=== PATIENT | female | born 1990 | race Caucasian/White ===

== ENCOUNTER → 2018-11-28 17:04 | Outpatient (CLI) | payer SELFPAY | PROVIDERS: Visit Provider Nurse Practitioner Obstetrics & Gynecology | DX: Z34.90 Encounter for supervision of normal pregnancy, unspecified, unspecified trimester (principal) | CPT/HCPCS: 36415; 84702 ==

== ENCOUNTER → 2018-12-26 13:56 | Outpatient (CLI) | payer MEDICAID, SELFPAY ==
--- NOTE | 2018-12-26 13:59 | US_ITS ---
US OB transvaginal HISTORY: Early OB ultrasound ITS.REASON: US OB Dates ORDERING PHYSICIAN: Thee Olivas MD PATIENT AGE: 28 years COMPARISON: None FINDINGS: An intrauterine gestational sac is present with a pole with a crown-rump length of 6.02cm correlating to gestational age of 14w0d. heart tones are present with an FHR of 174 bpm's. The placenta is noted anteriorly Adnexa: 2 cm left corpus luteum cyst. IMPRESSION: Live intrauterine gestation at 14 weeks 0 days as described above. Estimated due date by Ultrasound is 07/03/2019
== END ==
PROVIDERS: PCP Pediatrics; Visit Provider Nurse Practitioner Obstetrics & Gynecology
DX: O26.841 Uterine size-date discrepancy, first trimester (principal)
CPT/HCPCS: 76817

== ENCOUNTER → 2018-12-27 17:54 | Outpatient (CLI) | payer MEDICAID, SELFPAY ==
[2018-12-27 18:30] LABS: Basophils % 0.3 % (0.1-2.0); Eosinophils # 0.1 K/mm3 (0.0-0.4); Eosinophils % 0.6 % (0.1-12.0); Hematocrit 38.8 % (37.0-47.0); Hemoglobin 13.1 g/dL (12.2-16.2); Lymphocytes # 2.1 K/mm3 (0.7-4.5); Lymphocytes % 16.4 % (10-50); Mean Corpuscular HGB Conc 33.9 g/dL (31.8-35.4); Mean Corpuscular Hemoglobin 28.5 pg (27.0-31.2); Mean Corpuscular Volume 84.3 fl (81-99); Mean Platelet Volume 6.9 fl (7.4-10.4); Monocytes # 0.6 K/mm3 (0.1-1.0); Monocytes % 4.4 % (1.7-9.3); Neutrophils # 9.9 K/mm3 (1.8-7.8); Neutrophils % 78.4 % (37.0-80.0); Platelet Count 327 K/mm3 (142-424); Red Blood Count 4.61 M/mm3 (4.20-5.40); Red Cell Distribution Width 13.5 % (11.5-17.5); White Blood Count 12.6 K/mm3 (4.8-10.8)
[2018-12-29 08:19] LABS: Rapid Plasma Reagin Ab Titer Non Reactive (NonRea<1:1)
[2018-12-30 06:21] LABS: HIV Screen 4th Generation wRfx Non Reactive (Non Reactive); Hepatitis B Surface Antigen Negative (Negative); Hepatitis C Antibody <0.1 s/co ratio (0.0-0.9); Rubella Antibodies, IgG 2.26 index (Immune >0.99)
== END ==
PROVIDERS: Visit Provider Nurse Practitioner Obstetrics & Gynecology
DX: Z34.90 Encounter for supervision of normal pregnancy, unspecified, unspecified trimester (principal)
CPT/HCPCS: 36415; 85025; 86592; 86703; 86762; 86850; 87340; 87380; G0432

== ENCOUNTER → 2019-02-06 13:22 | Outpatient (CLI) | payer MEDICAID, SELFPAY ==
--- NOTE | 2019-02-06 13:28 | US_ITS ---
US OB /maternal detail: INDICATION: ITS.REASON: US OB Complete ORDERING PHYSICIAN: Thee Olivas MD PATIENT AGE: 28 years TECHNIQUE: ultrasound transabdominal scanning. COMPARISON: No previous relevant studies. FINDINGS: Single viable intrauterine gestation. Breech position. Placenta: Anterior placenta grade 1. There is average amount fluid. The cervix appears satisfactory. Closed and measuring 4 cm in length. Complete survey performed and was unremarkable on the submitted images as in PACS. No discrete anomalies identified on survey imaging by technologist. Active fetus. Three-vessel cord with satisfactory umbilical cord insertion. 4- chamber heart noted. Survey of brain & ventricles unremarkable. Face and neck survey unremarkable. Diaphragm and chest views unremarkable. Abdomen: Both kidneys noted and unremarkable. Stomach noted and satisfactory. Spine: Survey of the spine satisfactory with no anomalies identified nor imaged. Both arms and legs noted. Amniotic Fluid: Adequate. Maternal adnexa: No significant findings. Measurements: Average ultrasound age 19w0d. Gestational Age 20w0d. Estimated due date by ultrasound age 1107/03/2019. Estimated weight 271 grams. BPD = 19w0d OFD = 19w2d HC = 18w3d AC = 19w3d FL = 19w0d Growth Percentile= 8 percent Heart Rate = 160 Cerebellum = 20w3d Humerus = 18w6d HC/AC is 1.11 (1.09-1.26). CI is 78% (70-86%). FL/BPD is 68%. FL/AC is 21%. IMPRESSION: There is a single live fetus impression presentation. Average ultrasound age is 19 weeks and 0 days. All parameters correlate. No obvious anomalies. Please see above for detailed description
== END ==
PROVIDERS: PCP Family Medicine; Visit Provider Nurse Practitioner Obstetrics & Gynecology
DX: Z36.0 Encounter for antenatal screening for chromosomal anomalies (principal)
CPT/HCPCS: 76811

== ENCOUNTER → 2019-03-30 07:54 | Outpatient (CLI) | payer MEDICAID, SELFPAY ==
[2019-03-30 08:14] LABS: Glucose,Fasting 81 mg/dL (60-105)
[2019-03-30 09:57] LABS: Glucose 1 Hour 148 mg/dL (74-106)
== END ==
PROVIDERS: Visit Provider Nurse Practitioner Obstetrics & Gynecology
DX: Z34.90 Encounter for supervision of normal pregnancy, unspecified, unspecified trimester (principal)
CPT/HCPCS: 36415; 82951

== ENCOUNTER → 2019-04-10 07:41 | Outpatient (CLI) | payer MEDICAID, SELFPAY ==
[2019-04-10 08:01] LABS: Glucose,Fasting 86 mg/dL (60-105)
[2019-04-10 13:29] LABS: Glucose 1 Hour 74 mg/dL (74-106); Glucose 2 Hour 73 mg/dL (74-106); Glucose 3 Hour 70 mg/dL (74-106)
== END ==
PROVIDERS: Visit Provider Nurse Practitioner Obstetrics & Gynecology
DX: Z34.90 Encounter for supervision of normal pregnancy, unspecified, unspecified trimester (principal)
CPT/HCPCS: 36415; 82951

== ENCOUNTER → 2019-05-22 17:05 | Outpatient (CLI) | payer MEDICAID, SELFPAY | PROVIDERS: Visit Provider Nurse Practitioner Obstetrics & Gynecology | DX: Z34.90 Encounter for supervision of normal pregnancy, unspecified, unspecified trimester (principal) | CPT/HCPCS: 86403 ==

== ENCOUNTER 2019-06-27 05:34 | Inpatient (IN) ==
[2019-06-27 06:17] LABS: Basophils % 0.2 % (0.1-2.0); Eosinophils # 0.1 K/mm3 (0.0-0.4); Eosinophils % 1.3 % (0.1-12.0); Hemoglobin 12.1 g/dL (12.2-16.2); Lymphocytes # 1.7 K/mm3 (0.7-4.5); Lymphocytes % 17.2 % (10-50); Mean Corpuscular HGB Conc 31.9 g/dL (31.8-35.4); Mean Corpuscular Volume 84.2 fl (81-99); Mean Platelet Volume 8.2 fl (7.4-10.4); Monocytes # 0.5 K/mm3 (0.1-1.0); Monocytes % 4.8 % (1.7-9.3); Neutrophils # 7.7 K/mm3 (1.8-7.8); Neutrophils % 76.5 % (37.0-80.0); Platelet Count 308 K/mm3 (142-424); Red Blood Count 4.52 M/mm3 (4.20-5.40); Red Cell Distribution Width 14.5 % (11.5-17.5); White Blood Count 10.1 K/mm3 (4.8-10.8)
[2019-06-27 06:28] LABS: Microscopic, Urine URINE MICROSCOPIC (MICROSCOPIC)
[2019-06-27 06:31] LABS: Appearance,Urine SL CLOUDY (Clear); Bilirubin,Urine Negative (Negative); Blood, Urine Negative (Negative); Color,Urine YELLOW (Yellow); Glucose,Urine (UA) Negative (Negative); Ketones,Urine Negative (Negative); Leukocyte Esterase,Urine 1+ (Negative); PH,Urine 6.5 (5.0-8.5); Protein,Urine Negative (Negative); Specific Gravity, Urine 1.025 (1.005-1.030); Urobilinogen,Urine 0.2 EU/dl (0.2)
[2019-06-27 06:40] LABS: Amphetamine/Metha Screen,Urine Negative ng/mL (<1000); Barbiturates Screen,Urine Negative ng/mL (<200); Benzodiazepines Screen,Urine Negative ng/mL (<200); Cannabinoid Screen,Urine Negative ng/mL (<50); Cocaine Screen,Urine Negative ng/mL (<300); Methadone Screen,Urine Negative ng/mL (<300); Opiate Screen,Urine Negative ng/mL (<300); Phencyclidine Screen,Urine Negative ng/mL (<25)
[2019-06-27 06:44] LABS: Bacteria,Urine 1+ /lpf; Mucus,Urine 1+ /lpf; RBC,Urine Occasional #/hpf (0-3)
--- NOTE | 2019-06-27 08:21 | History & Physical Report ---
OB - H&P: HPI Antepartum - History of Present Illness Chief complaint: Postterm History of present illness: She is a 28 year-old 5 para 4 who is 40 weeks and a day. She has had 4 previous vaginal deliveries. [place] away. As result of that we elected to induce her labor at term. - History of Present Criteria for establishing EDC:: LMP confirmed by 1st trimester US care: good care Ultrasounds: normal 1st trimester US, normal mid trimester US Obstetrical complications: none [facility] History I have reviewed the patient's past medical history: Yes *Have you ever received a pneumonia vaccine?: No *Have you received a flu vaccine this season?: No Laterality Cases: Other Surgeries: Yes: No Previous Surgery. No: Amputation: No Fractures: No - *Social History Smoking Status: Never smoker Alcohol Intake: never Substance Use Type: denies use *Occupational Status:: employed Housing: other *Travel in the last 8 weeks: None Family Hx:: No significant family history Para: 4 Review of Systems - Review of Systems Review of systems:: pertinent systems reviewed and negative unless documented below Meds Home Medications Medication Instructions Recorded Confirmed Type 1 tab PO DAILY 11/30/18 06/27/19 History vitamin,calcium,tbgrhstk-ceav-vqina acid tablet Ferrous Sulfate 325 mg PO DAILY 06/27/19 06/27/19 History Allergies Allergy/AdvReac Type Severity Reaction Status Date / Time No Known Allergies Allergy Verified 06/23/19 09:21 OB - H&P: Exam - Physical Exam Vital signs: Temp Pulse Resp BP Pulse Ox 98.6 F 82 17 135/89 99 06/27/19 05:44 06/27/19 05:44 06/27/19 05:44 06/27/19 05:44 06/27/19 05:44 - Constitutional no acute distress - Routine HEENT Exam Head: Present: normocephalic Eye: Present: EOMI, PERRL ENT: Present: mucous membranes moist - Routine Neck Exam Present: supple, full ROM - Routine Respiratory Exam Absent: accessory muscle use (good air entry bilaterally), respiratory distress, wheezes, crackles - Routine Cardiovascular Exam Present: RRR. Absent: murmur - Routine Abdominal Exam Present: soft, normoactive bowel sounds. Absent: tenderness, distended, guarding - Routine Rectal Exam Patient deferred: visual exam, digital exam - Routine Exam Patient deferred: external exam, groin exam, perineal exam - Routine Extremities Exam Present: full ROM. Absent: cyanosis, edema - Routine Skin Exam Present: intact. Absent: cyanosis - Routine Neurological Exam Present: alert, oriented X3 - Routine Psychiatric Exam Present: normal affect OB - Results - Labs Labs: Short CBC 06/27/19 Range/Units 06:07 WBC 10.1 (4.8-10.8) K/mm3 Hgb 12.1 L (12.2-16.2) g/dL Hct 38.0 (37.0-47.0) % Plt Count 308 (142-424) K/mm3 Urine 06/27/19 Range/Units 06:18 Urine Color Yellow (Yellow) Urine Appearance Sl cloudy (Clear) Urine pH 6.5 (5.0-8.5) Ur Specific Allen 1.025 (1.005-1.030) Urine Protein Negative (Negative) Urine Glucose (UA) Negative (Negative) OB - A/P Antepartum (1) Normal delivery at term Current visit: Yes Status: Acute - Additional Plan Planning to breastfeed?: Yes Plan: induction Additional Information:: She is postdates and 5. She has had 4 previous vaginal deliveries. She lives at least 30 minutes away. As result of that we are electing to use her labor at term.
--- NOTE | 2019-06-27 08:22 | Progress Note ---
Labor Note - Subjective: Date: 06/27/19 Time: 08:21 regular contraction - Objective: NST:: Reactive Contractions:: every 2-3 minutes Cervical Dilation:: 4 Effacement:: 75% Station: -1 Membranes: artificially ruptured Comment:: Clear fluid - Fetus: Monitoring?: Yes monitoring type:: External - Assessment: Labor progressing?: Yes Cephalopelvic disproportion?: No Patient Problems: All Active Problems Uterine bleeding (Acute) Viable fetus in abdominal (Acute) Normal delivery at term (Acute) (Acute) - Plan: Anesthesia for epidural?: No Continue to labor down?: Yes Plan for ?: No Continue to monitor?: Yes Start pushing?: No Comment:: I have ruptured her membranes and there is clear fluid. She has progressed to 4 cm. We will plan a vaginal delivery.
--- NOTE | 2019-06-27 10:49 | Progress Note ---
Labor Note - Subjective: Date: 06/27/19 Time: 10:48 regular contraction - Objective: NST:: Reactive Contractions:: every 2-3 minutes Cervical Dilation:: 4 Effacement:: 75% Station: -1 Membranes: artificially ruptured - Fetus: Monitoring?: Yes monitoring type:: External - Assessment: Labor progressing?: Yes Cephalopelvic disproportion?: No Patient Problems: All Active Problems Uterine bleeding (Acute) Viable fetus in abdominal (Acute) Normal delivery at term (Acute) (Acute) - Plan: Anesthesia for epidural?: No Continue to labor down?: Yes Plan for ?: No Continue to monitor?: Yes Start pushing?: No
--- NOTE | 2019-06-27 13:40 | Progress Note ---
Labor Note - Subjective: Date: 06/27/19 Time: 13:39 regular contraction - Objective: NST:: Reactive Contractions:: every 2-3 minutes Cervical Dilation:: 5 Effacement:: 90% Station: 0 Membranes: artificially ruptured - Fetus: Monitoring?: Yes - Assessment: Labor progressing?: Yes Cephalopelvic disproportion?: No Patient Problems: All Active Problems Uterine bleeding (Acute) Viable fetus in abdominal (Acute) Normal delivery at term (Acute) (Acute) - Plan: Anesthesia for epidural?: No Continue to labor down?: Yes Plan for ?: No Continue to monitor?: Yes Start pushing?: No
--- NOTE | 2019-06-27 15:33 | Progress Note ---
Labor Note - Subjective: Date: 06/27/19 Time: 15:32 irregular contractions - Objective: NST:: Reactive Contractions:: every 2-3 minutes Cervical Dilation:: 8 Effacement:: 90% Station: 0 Membranes: artificially ruptured - Fetus: Monitoring?: Yes monitoring type:: Internal and External, External Comment:: clip applied - Assessment: Labor progressing?: Yes Cephalopelvic disproportion?: No Patient Problems: All Active Problems Uterine bleeding (Acute) Viable fetus in abdominal (Acute) Normal delivery at term (Acute) (Acute) - Plan: Anesthesia for epidural?: No Continue to labor down?: Yes Plan for ?: No Continue to monitor?: Yes Start pushing?: No
--- NOTE | 2019-06-27 17:14 | Procedure Note ---
- Delivery Note Delivery Date:: 06/27/19 Delivery Time:: 16:57 Anesthesia Type: None Was labor medically induced?: Yes Induction method: per pitocin protocol Gestational age (weeks): 40 Infant delivered prior to 39 weeks?: No Infant Gender: Male at 1 minute: 8 at 5 minutes: 9 Delivery Procedure:: She is a 28-year-old 5 5 para 4 at 40+1 weeks gestational age. She lives about 30 minutes away so we elected to induce her labor at term. She was started on IV oxytocin and had her membranes ruptured. She progressed to full dilation and delivered spontaneously a liveborn male child at 4:57 PM in the afternoon of June 27, 2019. On deliver the head there was a nuchal cord I delivered the rest of the infant's body atraumatically and then was able to easily reduce the cord. The oropharynx and nasopharynx were bulb suction. The baby cried spontaneously. We allowed the cord to continue to pulsate for approximately 1 minute. The cord was then doubly clamped and cut and the infant was placed on the mother's abdomen for further care. The nurses assigned Apgars of 8 at 1 minute and 9 at 5 minutes. She received IV oxytocin and using gentle traction on the cord and countertraction on the fundus I was able to easily deliver the placenta intact at 5:02 PM.. It had a normal three-vessel cord. There were no perineal or vaginal lacerations. She has O+ blood, she is rubella immune and was group B streptococcus negative. She plans to breast-feed. Her yard jockey is Dr. Chen. Estimated blood loss was approximately 500 cc. Placental Delivery Description: Spontaneous
[2019-06-28 05:40] LABS: Hematocrit 27.9 % (37.0-47.0)
[2019-06-28 05:42] LABS: Hemoglobin 8.9 g/dL (12.2-16.2)
--- NOTE | 2019-06-28 09:25 | Progress Note ---
Internal Medicine - PN: Subj *Date: 06/28/19 *Time: 09:23 Interval history: She had increased blood loss this morning and soaked through a floridalma. She then passed a couple of smaller clots. We have given her IV oxytocin as well as Hemabate. The bleeding seems to have settled. I examined her uterus and there were just a small amount of clot still up in the uterus. She is not actively bleeding anymore. The uterus is well contracted. Exam Vital signs and Labs for Last 24 Hours: Temp Pulse Resp BP Pulse Ox 98.6 F 82 17 135/89 99 06/27/19 05:44 06/27/19 05:44 06/27/19 05:44 06/27/19 05:44 06/27/19 05:44 Laboratory Results - last 24 hr 06/27/19 06:07: Crossmatch ([facility]) See Detail 06/27/19 06:18: Urine Opiates Screen Negative, Urine Methadone Screen Negative, Ur Barbituates Screen Negative, Ur Phencyclidine Scrn Negative, Ur Amphetamines Screen Negative, U Benzodiazepines Scrn Negative, Urine Cocaine Screen Negative, U Marijuana (THC) Screen Negative 06/27/19 17:21: Cord ABG pH 7.32 L 06/28/19 05:23: Hgb 8.9 L D, Hct 27.9 L I & O for Last 24 hours: Intake & Output 06/25/19 06/26/19 06/27/19 06/28/19 11:59 11:59 11:59 11:59 Weight 176 lb Microbiology Reports for the Last 24 Hours: Microbiology 06/27/19 06:18 Urine,Clean Catch Urine Culture - Preliminary NO GROWTH AFTER 24 HOURS - Constitutional no acute distress Assessment and Plan (1) Normal delivery at term Current visit: Yes Status: Acute Category: Medical Code(s): O80 - Encounter for full-term uncomplicated delivery (2) hemorrhage Current visit: Yes Status: Acute Category: Medical Code(s): O72.1 - Other immediate hemorrhage - Assessment and plan all Dx Assessment and Plan for all problems:: She had a significant amount of blood loss this morning. Her hemoglobin has dropped to 8.9 and I suspect it may even be lower than this. We will go ahead and give her 2 units of packed red blood cells. We will continue with IV oxytocin throughout the day at 40 cc/h. We will go ahead and give her misoprostol as well for the rest of the day.
[2019-06-28 16:16] LABS: Hematocrit 33.6 % (37.0-47.0)
[2019-06-28 17:22] LABS: Hemoglobin 10.7 g/dL (12.2-16.2)
[2019-06-29 04:10] VITALS: BP 127/78
[2019-06-29 08:23] LABS: Hematocrit 32.6 % (37.0-47.0); Hemoglobin 10.3 g/dL (12.2-16.2)
--- NOTE | 2019-06-29 10:33 | Discharge Summary ---
General - General Admission date:: 06/27/19 Discharge date: 06/29/19 HPI HPI: She is a 28-year-old 5 now para 5 who was 40+ weeks gestational age. She [place] out of town so we elected to bring her him and deliver her at 1 day post dates. Hospital Course Hospital Course: On June 27, 2019 she was started on IV oxytocin and had her membranes ruptured. She progressed to full dilation and delivered spontaneously a liveborn male child at 4:57 PM. The baby was a liveborn male child weighing 7 pounds 15 ounces and was 20-1/2 inches long. He had Apgars of 8 at 1 minute and 9 at 5 minutes. She has done well and has remained afebrile throughout her hospitalization. She did have a hemorrhage on the morning after her surgery and we elected to give her 2 units of blood. She had passed a number of clots and then soaked through completely and under pad. She received IV oxytocin as well as Hemabate and Cytotec. She subsequently has done well and has had no further episodes of bleeding. She has O+ blood, she is rubella immune and was group B streptococcus negative. She is bottlefeeding her utilization review coordinator Dr. Chen. She has been given the usual instructions with respect to limiting her activity, driving and sexual activity. She will continue with her vitamins and iron. Her condition on discharge is stable. Objective Vital signs: Temp Pulse Resp BP Pulse Ox 98.7 F 88 16 127/78 97 06/29/19 04:00 06/29/19 04:00 06/29/19 04:00 06/29/19 04:00 06/29/19 04:00 no acute distress Results Labs on day of discharge: Labs from last 24 hours 06/29/19 06/28/19 06/27/19 08:00 16:05 06:07 Hgb 10.3 L 10.7 L D Hct 32.6 L 33.6 L Blood Type O Positive Antibody Screen Negative Crossmatch ([facility]) See Detail DS: Diagnosis - Discharge Diagnosis (1) Normal delivery at term Status: Acute (2) hemorrhage Status: Acute Discharge Plan - Patient Discharge Instructions ACTIVITY: No heavy lifting DIET: continue same diet - Follow up Plan Disposition: Home, Self-Snf Medications: Home Medications Medication Instructions Recorded Confirmed Type 1 tab PO DAILY 11/30/18 06/27/19 History vitamin,calcium,liupkifx-yryk-jwpzk acid tablet Ferrous Sulfate 325 mg PO DAILY 06/27/19 06/27/19 History Prescriptions/Medication Reconciliation: Continued vitamin,calcium,rwgczegx-mbjh-evfzk acid tablet 1 tab PO DAILY Ferrous Sulfate 325 mg PO DAILY - Problem Reconciliation Problems Reviewed?: Yes
== END 2019-06-29 12:45 | disposition home or self-care (01) | DRG 806 ==
LOC: OB 05:34
PROVIDERS: ADMIT Nurse Practitioner Obstetrics & Gynecology; ATTEND Nurse Practitioner Obstetrics & Gynecology
CPT/HCPCS: 36415; 59025; 80305; 81001; 82800; 85014; 85018; 85025; 86850; 87086; J0595; J2405; P9016

== ENCOUNTER → 2020-04-30 14:55 | Outpatient (CLI) | payer OTHER, SELFPAY ==
--- NOTE | 2020-04-30 15:04 | US_ITS ---
PROCEDURE: US TRANSVAGINAL CLINICAL INDICATION: FAMILY HX OF OVARIAN CANCER COMPARISON: US OBTV US OB transvaginal from 12/26/2018 FINDINGS: UTERUS: 9cm x 5cmx 4cm with a combined endometrial thickness of 3.2mm LEFT OVARY: [id number] with a volume of 6.2ml. RIGHT OVARY: [id number] with a volume of 6.6ml. Artifact is present from an IUD which appears to be in satisfactory position. There are multiple bilateral ovarian follicles with no dominant cyst apparent. IMPRESSION: Multiple bilateral ovarian follicles with IUD in place. Otherwise negative pelvic ultrasound. No dominant mass evident Dictated by: Delfin Garcia MD 04/30/2020 16:15 Delfin Garcia MD in [place] 04/30/2020 16:15
== END ==
PROVIDERS: PCP Nurse Practitioner; Visit Provider Nurse Practitioner
DX: Z80.41 Family history of malignant neoplasm of ovary (principal)
CPT/HCPCS: 76830

== ENCOUNTER 2020-09-20 11:36 | Emergency (ER) | payer OTHER, SELFPAY ==
[2020-09-20 11:40] VITALS: BP 137/85; PULSE 71; RESP 21; TEMP 37.2; O2SAT 100; BMI 32.8
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
[2020-09-20 13:10] VITALS: BP 137/85; PULSE 71; RESP 21; TEMP 37.2; O2SAT 100
== END 2020-09-20 13:18 | disposition home or self-care (01) ==
PROVIDERS: Emergency Provider Nurse Practitioner Family; PCP Family Medicine
DX: M54.2 Cervicalgia (principal); M54.6 Pain in thoracic spine; V63.5XXA Driver of heavy transport vehicle injured in collision with car, pick-up truck or van in traffic accident, initial encounter; Y92.488 Other paved roadways as the place of occurrence of the external cause; Y99.0 Civilian activity done for income or pay
CPT/HCPCS: 72040; 72072; 72100; 99202; G0463

== ENCOUNTER 2021-07-28 02:58 | Emergency (ER) | payer SELFPAY ==
[2021-07-28] VITALS (13 sets, daily range): BP systolic 111–139; BP diastolic 62–85; PULSE 75–133; RESP 18–24; TEMP 36.8–37.5; O2SAT 94–98; BMI 31.6; BMI 32.6
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
--- NOTE | 2021-07-28 03:17 | XR_ITS ---
PROCEDURE INFORMATION: Exam: XR Chest Exam date and time: 07/28/2021 3:17 AM Age: 30 years old Clinical indication: Shortness of breath; Additional info: SOA TECHNIQUE: Imaging protocol: XR of the chest. Views: 2 views. COMPARISON: CR XR THORACIC SPINE 3V 09/20/2020 12:27 PM FINDINGS: Lungs: Unremarkable. No consolidation. Pleural spaces: Unremarkable. No pleural effusion. No pneumothorax. Heart/Mediastinum: Unremarkable. No cardiomegaly. Bones/joints: Unremarkable. IMPRESSION: No acute findings.
--- NOTE | 2021-07-28 03:17 | CT_ITS ---
PROCEDURE INFORMATION: Exam: CTA Chest With Contrast Exam date and time: 07/28/2021 3:17 AM Age: 30 years old Clinical indication: Shortness of breath; Additional info: SOA TECHNIQUE: Imaging protocol: Computed tomographic angiography of the chest with contrast. 3D rendering (Not supervised by radiologist): MIP and/or 3D reconstructed images were created by the technologist. Radiation optimization: All CT scans at this facility use at least one of these dose optimization techniques: automated exposure control; mA and/or kV adjustment per patient size (includes targeted exams where dose is matched to clinical indication); or iterative reconstruction. Contrast material: ISOVUE 370; Contrast volume: 70 ml; Contrast route: INTRAVENOUS (IV); COMPARISON: CR XR CHEST 2V 07/28/2021 3:38 AM FINDINGS: Pulmonary arteries: The pulmonary trunk, main, and branch pulmonary arteries contain no filling defects. Aorta: Unremarkable. No aortic aneurysm. No aortic dissection. Lungs: Unremarkable. No consolidation. No masses. Pleural spaces: Unremarkable. No pneumothorax. No pleural effusion. Heart: No cardiomegaly. No pericardial effusion. Heart RV/LV ratio: Within normal limits. Coronary arteries: There is no evidence of significant coronary artery calcifications. Mediastinal space: No evidence of mediastinal or hilar mass. Lymph nodes: Unremarkable. No enlarged lymph nodes. Bones/joints: Unremarkable. No acute fracture. Soft tissues: Unremarkable. IMPRESSION: 1. No evidence of main or branch pulmonary embolism. 2. No evidence of acute process within the chest.
[2021-07-28 03:24] LABS: Coronavirus 19, PCR Not Detected (NotDetected); Influenza A, PCR Not Detected (NotDetected); Influenza B, PCR Not Detected (NotDetected)
[2021-07-28 03:29] LABS: Basophils # 0.1 K/mm3 (0-0.2); Basophils % 0.5 % (0.1-2.0); Eosinophils # 0.1 K/mm3 (0.0-0.4); Eosinophils % 0.6 % (0.1-12.0); Hematocrit 45.1 % (37.0-47.0); Hemoglobin 15.3 g/dL (12.2-16.2); Lymphocytes # 2.2 K/mm3 (0.7-4.5); Lymphocytes % 9.7 % (10-50); Mean Corpuscular Hemoglobin 28.7 pg (27.0-31.2); Mean Corpuscular Volume 84.3 fl (81-99); Mean Platelet Volume 7.6 fl (7.4-10.4); Monocytes # 0.6 K/mm3 (0.1-1.0); Monocytes % 2.9 % (1.7-9.3); Neutrophils # 19.4 K/mm3 (1.8-7.8); Neutrophils % 86.4 % (37.0-80.0); Platelet Count 395 K/mm3 (142-424); Red Blood Count 5.35 M/mm3 (4.20-5.40); Red Cell Distribution Width 13.4 % (11.5-17.5)
[2021-07-28 03:31] LABS: Strep Scrn Group A (Rapid) Negative (Negative)
[2021-07-28 03:42] LABS: HCG Qualitative, Serum Negative (Negative)
[2021-07-28 03:43] LABS: White Blood Count 22.5 K/mm3 (4.8-10.8)
[2021-07-28 03:44] LABS: Alanine Aminotransferase 20 U/L (12-78); Albumin Level 4.5 g/dl (3.5-5.0); Alkaline Phosphatase 98 U/L (38-126); Anion Gap 11.3 mEq/L (5-15); Aspartate Amino Transferase 29 U/L (14-36); Bilirubin,Direct 0.2 mg/dl (0.0-0.4); Bilirubin,Indirect 0.5 mg/dL (0.0-0.9); Bilirubin,Total 0.7 mg/dl (0.2-1.3); Bilirubin,Unconjugated 0.5 mg/dL (0.0-1.1); Blood Urea Nitrogen 12 mg/dl (7-17); Calcium 9.6 mg/dl (8.4-10.2); Carbon Dioxide 26 mmol/L (22.0-30.0); Chloride 103 mmol/L (98-107); Creatinine Clearance Estimated 146 mL/min (50-200); Estimated Glomerular Filt Rate 98 ml/min (>60); GFR (African American) 119 ML/MIN (>60); Glucose 134 mg/dl (74-100); MANUAL DIFFERENTIAL MANUAL DIFFERENTIAL (MANUAL DIFF); Potassium 3.3 mmoL/L (3.5-5.1); Sodium 137 mmol/L (136-145); Total Protein,Serum 7.7 g/dl (6.3-8.2)
[2021-07-28 03:45] LABS: Lymphocytes % 6 % (10-50); Neutrophils % 79 % (42-76); Platelet Estimate Normal; RBC Morphology Normal; Rouleaux 1+; Total Cells Counted 100
[2021-07-28 03:49] LABS: C-Reactive Protein 4.7 mg/L (0-4)
[2021-07-28 03:57] LABS: Erythrocyte Sedimentation Rate 4 mm/hr (0-20)
[2021-07-28 03:58] LABS: Troponin I 0.02 ng/ml (0.00-0.034)
[2021-07-28 04:03] LABS: Procalcitonin 0.042 ng/mL (0.0-2.0)
[2021-07-28 04:13] LABS: Lactic Acid 1.7 mmol/L (0.7-2.1)
[2021-07-28 04:22] LABS: NT Pro Brain Natriuretic Pep. 20.7 pg/mL (0-125)
--- NOTE | 2021-07-28 04:55 | HMH.EDSOB ---
ED Disposition Clinical Impression: Pneumonitis Dyspnea Qualifiers: Dyspnea type: unspecified Qualified Code(s): R06.00 - Dyspnea, unspecified Disposition: Home, Self-Care Condition on Discharge: Good Instructions: DI for Shortness of Breath Additional Instructions: use meds and see pcp or ed if increased sx Prescriptions: Azithromycin [Zithromax 250mg tab] 250 mg PO DIRECTED #6 tab Transmission Status: Pending to [facility] Referrals: Елена Devries APRN [Primary Care Provider] - - Critical Care Critical Care Time: No Attestation: On 07/28/21, the high probability of a clinically significant, sudden or life threatening deterioration of the following system(s) required my full and direct attention, intervention and personal management. The time I documented below is in addition to time spent performing reported procedures but includes the following listed in this critical care notation. Medical Decision Making - Medical Records Medical records reviewed: Yes: I reviewed the patient's medical records. - Robin Inquiry Pt receiving controlled substance: No Vital Signs: 07/28/21 02:59 07/28/21 03:30 07/28/21 04:00 Temperature 98.3 F Temperature Source Oral Pulse Rate 126 H 114 H Pulse Rate [Left] 125 H Respiratory Rate 24 Blood Pressure 137/80 134/80 Blood Pressure [Right Arm] 139/85 Blood Pressure Mean [Right Arm] 103 02 Sat by Pulse Oximetry 95 95 98 Oxygen Delivery Method Room Air Room Air 07/28/21 04:20 07/28/21 04:21 07/28/21 04:30 Temperature Temperature Source Pulse Rate 120 H 117 H 133 H Pulse Rate [Left] Respiratory Rate Blood Pressure 124/77 Blood Pressure [Right Arm] Blood Pressure Mean [Right Arm] 02 Sat by Pulse Oximetry 94 L Oxygen Delivery Method 07/28/21 05:30 Temperature Temperature Source Pulse Rate 128 H Pulse Rate [Left] Respiratory Rate 20 Blood Pressure 114/62 Blood Pressure [Right Arm] Blood Pressure Mean [Right Arm] 02 Sat by Pulse Oximetry 94 L Oxygen Delivery Method Room Air - Lab Data Lab results reviewed: Yes: I reviewed the patient's lab results. Lab Results 07/28/21 03:06: Group A Strep Rapid Negative 07/28/21 03:06: SARS-CoV-2 (PCR) Not detected, Influenza A Untype (PCR) Not detected, Influenza Type B (PCR) Not detected 07/28/21 03:25: WBC 22.5 H*, RBC 5.35, Hgb 15.3, Hct 45.1, MCV 84.3, MCH 28.7, MCHC 34.0, RDW 13.4, Plt Count 395, MPV 7.6, Neut % (Auto) 86.4 H, Lymph % (Auto) 9.7 L, Barron % (Auto) 2.9, Eos % (Auto) 0.6, Baso % (Auto) 0.5, Neut # (Auto) 19.4 H, Lymph # (Auto) 2.2, Barron # (Auto) 0.6, Eos # (Auto) 0.1, Baso # (Auto) 0.1, Total Counted 100, Neutrophils % (Manual) 79 H, Band Neutrophils % 15.0 H, Lymphocytes % (Manual) 6 L, Platelet Estimate Normal, RBC Morphology Normal, Rouleaux 1+, ESR 4 07/28/21 03:25: Sodium 137, Potassium 3.3 L, Chloride 103, Carbon Dioxide 26, Anion Gap 11.3, BUN 12, Creatinine 0.70, Estimated Creat Clear 146, Estimated GFR 98, Est GFR ( Amer) 119, Glucose 134 H, Calcium 9.6, Total Bilirubin 0.7, Direct Bilirubin 0.2, Conjugated Bilirubin 0.0, Indirect Bilirubin 0.5, Unconjugated Bilirubin 0.5, AST 29, ALT 20, Alkaline Phosphatase 98, Troponin I 0.02, C-Reactive Protein 4.7 H, Total Protein 7.7, Albumin 4.5, Procalcitonin 0.042 07/28/21 03:25: Serum HCG, Qual Negative 07/28/21 03:25: NT-Pro-B Natriuret Pep 20.7 07/28/21 03:25: TSH 1.09, Thyroxine (T4) 7.9 07/28/21 03:25: Mycoplasma pneumon IgM Non-reactive 07/28/21 03:57: Lactate 1.7 07/28/21 06:30: Troponin I 0.02 Result diagrams: 07/28/21 03:25 07/28/21 03:25 Orders (Tests/Meds): ED MEDICATIONS Discontinued Medications Generic Name Dose Route Start Last Admin Trade Name Freq PRN Reason Stop Dose Admin Furosemide 40 mg 07/28/21 04:49 07/28/21 04:51 Furosemide 40mg/4ml Vial IV 07/28/21 04:50 40 mg ONCE ONE Administration Sodium Chloride 1,000 mls @ 999 mls/hr
[2021-07-28 05:40] LABS: T4 (Thyroxine) 7.9 ug/dl (5.53-11.0)
[2021-07-28 05:51] LABS: Mycoplasma Pneumo IGM (Rapid) Non-Reactive (Non-Reactiv)
[2021-07-28 05:54] LABS: Thyroid Stimulating Hormone 1.09 uIU/mL (0.465-4.68)
[2021-07-28 07:05] LABS: Troponin I 0.02 ng/ml (0.00-0.034)
--- NOTE | 2021-07-28 08:10 | PC.NURSE ---
Pt eating and drinking, tolerating well at this time.
[2021-07-28 09:55] LABS: Microscopic, Urine URINE MICROSCOPIC (MICROSCOPIC)
[2021-07-28 09:57] LABS: Appearance,Urine CLOUDY (Clear); Bilirubin,Urine Negative (Negative); Blood, Urine TRACE-I (Negative); Color,Urine YELLOW (Yellow); Glucose,Urine (UA) Negative (Negative); Ketones,Urine Negative (Negative); Leukocyte Esterase,Urine 3+ (Negative); Nitrate,Urine Negative (Negative); Protein,Urine Negative (Negative); Urobilinogen,Urine 0.2 EU/dl (0.2)
[2021-07-28 10:08] LABS: Bacteria,Urine 2+ /lpf; WBC,Urine 20-50 #/hpf (0-3)
== END 2021-07-28 09:46 | disposition home or self-care (01) ==
PROVIDERS: Emergency Provider Emergency Medicine; PCP Nurse Practitioner
DX: J18.9 Pneumonia, unspecified organism (principal)
CPT/HCPCS: 71046; 71275; 80048; 80076; 81001; 83605; 83880; 84145; 84436; 84443; 84484; 84703; 85007; 85025; 85651; 86140; 86738; 87040; 87086; 87430; 93005; 96365; 96367; 96375; 99284; C9803; J2405; Q9967; U0003; U0005

== ENCOUNTER → 2021-12-04 15:48 | Outpatient (CLI) | payer SELFPAY ==
[2021-12-04 16:53] LABS: Hemoglobin A1C 5.3 % (4.0-6.0)
[2021-12-04 17:42] LABS: Anion Gap 10.9 mEq/L (5-15); Blood Urea Nitrogen 11 mg/dl (7-17); Calcium 9.2 mg/dl (8.4-10.2); Carbon Dioxide 28 mmol/L (22.0-30.0); Chloride 105 mmol/L (98-107); Estimated Glomerular Filt Rate 98 ml/min (>60); GFR (African American) 118 ML/MIN (>60); Glucose 76 mg/dl (74-100); Potassium 3.9 mmoL/L (3.5-5.1); Sodium 140 mmol/L (136-145)
== END ==
PROVIDERS: Visit Provider Obstetrics & Gynecology
DX: Z13.1 Encounter for screening for diabetes mellitus (principal); B37.3 Candidiasis of vulva and vagina
CPT/HCPCS: 36415; 80048; 83036

== ENCOUNTER 2024-05-02 09:21 | Emergency (ER) | payer SELFPAY ==
[2024-05-02 09:40] VITALS: BP 131/91; PULSE 85; RESP 18; TEMP 36.8; O2SAT 95; BMI 29.5
--- NOTE | 2024-05-02 10:10 | ED_ITS ---
Discharge Plan Disposition Patient Disposition: Home, Self-Care Condition: Good Prescriptions Prescriptions: New azithromycin [Zithromax Z-Jose] 250 mg tablet See Rx Instructions .ROUTE .COMPLEX 5 Days Qty: 6 0RF Rx Instructions: For 250 mg dose pack: take 500 mg today (day 1), then 250 mg for 4 days (days 2-5) methylprednisolone [Medrol (Jose)] 4 mg tablets,dose pack See Rx Instructions .Route .COMPLEX 6 Days Qty: 21 0RF Rx Instructions: taper pack; [id number]-[id number]-[id number] [Bromfed DM] 2-30-10 mg/5 mL syrup 10 ml PO Q6H PRN (Reason: cold symptoms) Qty: 200 0RF guaifenesin [Mucinex] 600 mg tablet extended release 12hr 1,200 mg PO BID PRN (Reason: cough) Qty: 20 0RF No Action phentermine 37.5 mg tablet 37.5 mg PO DAILY Patient Comments: TAKE ONE TABLET BY MOUTH EVERY MORNING BEFORE BREAKFAST Referrals Follow up/Referrals: Елена Devries APRN [Primary Care Provider] - See instructions Activity Restrictions/Add. Instructions Additional Instructions/Restrictions: * Start antibiotic today. Be sure to complete entire prescription even if feeling better * Monitor temp. Tylenol every 4 hours as needed and / or ibuprofen every 6 hours as needed ( As long as your primary care physician has told you that it ok to take both. For fever/aches/pains ER if no less than 101 despite Tylenol or Motrin * Humidifier/vaporizer or hot steamy shower * Mucinex during the day for your cough and cough suppressant only at night. Be sure to drink lots of water. Insurance may not cover a prescriptions for mucinex. Might be cheaper to get 400mg tablets and take 2 tablet in the morning, mid-day and evening with lots of water. *Bromfed may cause drowsiness. Know how it effects you (your child) before driving, caring for small child, or sending your child to school. Not other antihistamines/allergy medications while taking bromfed *Start steroid tomorrow. Helps with inflammation therefore, cough and wheezing. Follow directions on the package. Reviewed side effects. Patient reports taking them before. Follow up IMMEDIATELY for new or worsening of symptoms OR no noticeable improvement over the next 48-72 hours. 911 immediately for any life threatening symptoms such as chest pain or difficulty breathing Clinical Impressions Clinical Impression: Bronchitis Instructions Patient Instructions: Cough, DI for Sinusitis, DI for Ear Pain-Adult Print Language Print Language: [place] Discharge [place] Flynn [facility] [place] General Stated complaint: headache, cough Mode of Arrival: Ambulatory Source of Information: Patient Limitations: No Limitations Time Seen by Provider: 05/02/24 10:10 Description of Symptoms (Recalled from Triage Doc. by RN): PATIENT C/O HEADACHE, COUGH, EAR ACHE, AND CHEST SORENESS SINCE WEDNESDAY HEENT Symptoms (Recalled from RN notes): Yes Resp Symptoms (Recalled from RN notes): Yes Skin Symptoms (Recalled from RN notes): No MS Symptoms (Recalled from RN notes): No Functional Status (Recalled from RN notes): WNL History of Present Illness Provider Complaint: Patient states that she started feeling bad last week and worse since Wednesday States that she has been having cough, chest congestion, soreness from coughing so much, headache and sinus drainage states when she wakes up she is coughing up mucous so today Related Data Home Medications ?Medication ?Instructions ?Recorded ?Confirmed phentermine 37.5 mg tablet 37.5 mg PO DAILY 05/02/24 05/02/24 Previous Rx's ?Medication ?Instructions ?Recorded azithromycin 250 mg tablet See Rx Instructions PO .COMPLEX 5 05/02/24 (Zithromax Z-Jose) days #6 tabs [id number]-zbqhdgtudqxrwgy-ON 10 ml PO Q6H PRN cold symptoms 05/02/24 2 mg-30 mg-10 mg/5 mL oral syrup #200 mL (Bromfed DM) guaifenesin 600 mg tablet, 1,200 mg (2 x 600 mg) PO BID PRN 05/02/24 extended release 12 hr (Mucinex) cough #20 tabs methylprednisolone 4 mg tablets in See Rx Instructions .Route 05/02/24 a dose pack (Medrol (Jose)) .COMPLEX 6 days #21 tabs Allergies Allergy/AdvReac Type Severity Reaction Status Date / Time No Known Allergies Allergy Verified 12/04/21 15:06 Worker's Comp Is this a Worker's Comp case?: No [facility] Disclaimer: The information contained in this section may have been updated after the patient was seen, as this information can be updated by other users. Surgical History (Updated 05/02/24 @ 09:58 by Jennifer Golden RN) History of tonsillectomy Social History Smoking Status: Never smoker alcohol intake: never substance use type: denies use current occupational status: other Travel in the last 8 weeks: None household members: spouse and children housing: other ROS Obtained: Yes All systems reviewed & no additional complaints except as documented and Yes Systems reviewed as appropriate & no additional complaints except as documented Constitutional Constitutional: Reports system reviewed and no additional complaints, except as documented, Reports as per HPI and Reports headache(s) ENT Ears, Nose, Mouth, and Throat: Reports system reviewed and no additional complaints, except as documented, Reports as per HPI, Reports otalgia, Reports headache(s), Reports sinus pain, Reports sinus pressure and Reports sore throat Cardiovascular Cardiovascular: Reports system reviewed and no additional complaints, except as documented and Reports as per HPI Respiratory Respiratory: Reports system reviewed and no additional complaints, except as documented, Reports as per HPI, Reports chest congestion and Reports cough Neurologic Neurologic: Reports headache(s) Physical Exam General General appearance: alert and in no apparent distress ENT ENT exam: Present mucous membranes moist Expanded ENT Exam Nose exam: Present sinus tenderness Throat exam: Present other (PND noted) Respiratory Respiratory exam: Present normal lung sounds bilaterally; Absent respiratory distress or wheezes Cardiovascular Cardiovascular exam: Present regular rate, normal rhythm and normal heart sounds Neurological Exam Neurological exam: Present alert, oriented X3 and normal gait Medical Decision Making Robin Inquiry Pt receiving controlled substance: No Robin was queried for this patient: No Vital Signs: 05/02/24 09:40 Temperature 98.2 F Temperature Source Oral Pulse Rate [Left Brachial] 85 Respiratory Rate 18 Blood Pressure [Left Arm] 131/91 H Blood Pressure Mean [Left Arm] 104 Blood Pressure Source [Left Arm] Automatic Cuff Blood Pressure Position [Left Arm] Sitting 02 Sat by Pulse Oximetry 95 Oxygen Delivery Method Room Air
[2024-05-02] MEDS: cefTRIAXone 1GM VIAL 1 GM IM (10:30)
[2024-05-02] MEDS: METHYLPREDNISOLONE SOD SUCC 125MG VIAL 125 MG IM (10:30)
[2024-05-02] MEDS: LIDOCAINE 1% 5ML PF VIAL IM (10:30)
[2024-05-02 10:44] VITALS: BP 131/91; PULSE 85; RESP 18; TEMP 36.8; O2SAT 95
== END 2024-05-02 10:50 | disposition home or self-care (01) ==
PROVIDERS: Emergency Provider Nurse Practitioner; PCP Nurse Practitioner
DX: J20.9 Acute bronchitis, unspecified (principal); R51.9 Headache, unspecified; R09.89 Other specified symptoms and signs involving the circulatory and respiratory systems; R09.82 Postnasal drip; R09.81 Nasal congestion
CPT/HCPCS: 96372; 99212; 99214; G0463; J0696; J2919

== ENCOUNTER 2024-10-11 11:34 | Outpatient (CLI) | payer SELFPAY ==
--- NOTE | 2024-10-11 11:37 | XR_ITS ---
FINAL REPORT CLINICAL HISTORY: pain FINDINGS: AP, oblique, and lateral views of the left wrist were obtained. There is no prior exam for comparison. There is no acute fracture or dislocation. The joint spaces are preserved. The soft tissues are normal. IMPRESSION: No acute osseous abnormality of the left wrist. If pain persists, MR is recommended. Reviewed, Interpreted and Dictated by Abi Akbar MD Transcribed by Mary Faye Authenticated and [facility]
== END 2024-10-11 23:59 | disposition home or self-care (01) ==
LOC: RAD 11:34
PROVIDERS: PCP Nurse Practitioner; Visit Provider Physician Assistant
DX: M25.532 Pain in left wrist (principal)
CPT/HCPCS: 73110